=== PATIENT | female | born 1990 | race Caucasian/White ===

== ENCOUNTER 2020-01-24 11:41 | Emergency (ER) | payer SELFPAY ==
[2020-01-24] MEDS ORDERED: AMOXICILLIN500 MG PO ×3 (11:59→12:32)
[2020-01-24 12:05] VITALS: BP 125/85
== END 2020-01-24 12:05 | disposition home or self-care (01) | DRG 153 ==
LOC: ED 11:41
DX: J02.9 Acute pharyngitis, unspecified (principal); F17.210 Nicotine dependence, cigarettes, uncomplicated; Z20.818 Contact with and (suspected) exposure to other bacterial communicable diseases